=== PATIENT | female | born 1995 | race Caucasian/White ===

== ENCOUNTER 2017-09-16 07:29 | Emergency (ER) | payer OTHER ==
[2017-09-16 07:35] VITALS: BP 114/78; PULSE 90; TEMP 99; BMI 17.7
--- NOTE | 2017-09-16 08:48 | PDOC ---
History of Present Illness - General Chief Complaint: Cold Symptoms Stated Complaint: FLU-LIKE SYMPTOMS Time Seen by Provider: 09/16/17 08:21 History Source: Patient Exam Limitations: No Limitations - History of Present Illness Initial Comments: 09/16/17 08:45 Patient is here with complaints of flulike symptoms for the past 2 days. States has fever, headache, runny nose moist nonproductive cough and body aches. Timing/Duration: reports: just prior to arrival Severity: reports: moderate Past History - Travel Traveled outside of the country in the last 30 days: No Close contact w/someone who was outside of country & ill: No - Past Medical History Allergies/Adverse Reactions: Allergies Allergy/AdvReac Type Severity Reaction Status Date / Time nut - unspecified Allergy Rash Verified 09/16/17 07:35 shellfish derived Allergy Hives Verified 09/16/17 07:35 Home Medications: Ambulatory Orders Bupropion HCl [Wellbutrin -] 100 mg PO BID 08/03/14 [place] Carbonate [Eskalith -] 450 mg PO BID 08/03/14 Pindolol 10 mg PO ASDIR 08/03/14 Quetiapine Fumarate [Seroquel -] 200 mg PO HS 08/03/14 Oseltamivir Phosphate [Tamiflu -] 75 mg PO BID #10 capsule 09/16/17 Asthma: Yes COPD: No Psychiatric Problems: Yes (BIPOLAR) - Suicide/Smoking/Psychosocial Hx Smoking History: Never smoked Have you smoked in the past 12 months: No Hx Alcohol Use: No Drug/Substance Use Hx: No Substance Use Type: None Review of Systems - Review of Systems Able to Perform ROS?: Yes Is the patient limited [place] proficient: Yes Constitutional: Yes: Symptoms Reported, See HPI, Chills, Fever, Malaise HEENTM: Yes: Symptoms Reported, See HPI Respiratory: Yes: Symptoms reported, See HPI, Cough. No: Wheezing ABD/GI: Yes: Symptoms Reported Musculoskeletal: Yes: Symptoms Reported, See HPI Integumentary: Yes: Symptoms Reported, Pallor Neurological: Yes: Symptoms reported, See HPI, Headache All Other Systems: Reviewed and Negative *Physical Exam - Vital Signs Last Vital Signs Temp Pulse Resp BP Pulse Ox 99.0 F 90 20 114/78 100 09/16/17 07:32 09/16/17 07:32 09/16/17 07:32 09/16/17 07:32 09/16/17 07:32 - Physical Exam General Appearance: Yes: Nourished, Appropriately Dressed HEENT: positive: SAUL, Rhinorrhea, Sinus Tenderness. 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 NML intact, Fully Oriented, Alert, Normal Mood/ Affect, Normal Response, Motor Strength 01/02 Progress Note - Progress Note Progress Note: Upper respiratory infection, probable influenza we will treat with Tamiflu *DC/Admit/Observation/Transfer Diagnosis at time of Disposition: Influenzal bronchitis - Discharge Dispostion Disposition: HOME Condition at time of disposition: Stable Admit: No - Referrals - Patient Instructions Printed Discharge Instructions: DI for Viral Upper Respiratory Infection -- Adult Additional Instructions: Rest, drink lots of fluids: Teas, water, soups, Pedialyte Saltwater gargles Steamy showers/seem to face break up mucus Old-fashioned treatments help! Avoid contact with others until fevers and cough resolved as this is very contagious Lots of handwashing and good hygiene Continue [id number] medications for symptomatic relief Tylenol or Motrin for fever and pain Take all of Tamiflu as directed: 1 tab every 12 hours for 5 days Followup with private physician in one to 2 days as needed or if worsening Return to emergency department for worsened symptoms, fevers, dehydration Influenza takes between 5 and 7 days for resolution To not participate in any activity, work, or school until fevers and cough are gone for at least one day - Post Discharge Activity Forms/Work/School Notes: Back to Work
== END 2017-09-16 08:51 | disposition home or self-care (01) ==
LOC: JERFT 07:29 → JER 07:29 → JERFT 08:51
DX: J11.1 Influenza due to unidentified influenza virus with other respiratory manifestations (principal); J40 Bronchitis, not specified as acute or chronic
CPT/HCPCS: 99281-25

== ENCOUNTER 2018-01-13 02:37 | Emergency (ER) | payer OTHER ==
[2018-01-13] MEDS ORDERED: LIDOCAINE HCL 2% (50ML VIAL) SQ ONE (03:25)
[2018-01-13] MEDS ORDERED: BUPIVACAINE HCL/PF (5 MG/ML) 30 ML VIAL IJ ONE (03:26)
--- NOTE | 2018-01-13 03:27 | PDOC ---
History of Present Illness - General Chief Complaint: Toothache Stated Complaint: TOOTHACHE Time Seen by Provider: 01/13/18 03:21 History Source: Patient Exam Limitations: No Limitations - History of Present Illness Initial Comments: CHIEF COMPLAINT: 22 y/o female c/o left toothache x 4 days. HISTORY OF PRESENT ILLNESS: patient has been taking 200mg of motrin daily with no relief. Patient denies fever. She has no dentist REVIEW OF SYSTEMS: GENERAL/CONSTITUTIONAL: No fever/chills. HEAD, EYES, EARS, NOSE AND THROAT: +left lower toothache SKIN: No rash or easy bruising. NEUROLOGIC: No headache, vertigo, loss of consciousness, or loss of sensation. PHYSICAL EXAM: GENERAL: The patient is awake, alert, and fully oriented, in no acute distress. ENT: Left lower last molar impacted with surrounding gingival edema that is TTP. EXTREMITIES: Normal range of motion, no edema. NEUROLOGICAL: Normal speech, normal gait. CN II-XII grossly intact. Past History - Past Medical History Allergies/Adverse Reactions: Allergies Allergy/AdvReac Type Severity Reaction Status Date / Time nut - unspecified Allergy Rash Verified 01/13/18 03:30 shellfish derived Allergy Hives Verified 01/13/18 03:30 Home Medications: Ambulatory Orders Bupropion HCl [Wellbutrin -] 100 mg PO BID 08/03/14 [place] Carbonate [Eskalith -] 450 mg PO BID 08/03/14 Pindolol 10 mg PO ASDIR 08/03/14 Quetiapine Fumarate [Seroquel -] 200 mg PO HS 08/03/14 Oseltamivir Phosphate [Tamiflu -] 75 mg PO BID #10 capsule 09/16/17 Asthma: Yes COPD: No Psychiatric Problems: Yes (BIPOLAR) - Suicide/Smoking/Psychosocial Hx Smoking History: Never smoked Have you smoked in the past 12 months: No Hx Alcohol Use: No Drug/Substance Use Hx: No Substance Use Type: None Medical Decision Making - Medical Decision Making A/P: 22 y/o with impacted wisdom tooth. Will give an inferior alveolar block with bupivicaine and lidocaine. Will discharge to home with instructions to take 600mg of motrin every 6 hours with food for pain and f/u at the dental clinic tomorrow. The patient verbalizes understanding of all instructions, has no further questions and is awaiting discharge. *DC/Admit/Observation/Transfer Diagnosis at time of Disposition: Impacted tooth - Discharge Dispostion Disposition: HOME Condition at time of disposition: Good - Referrals Referrals: ON STAFF,NOT [Primary Care Provider] - - Patient Instructions Printed Discharge Instructions: DI for Impacted Tooth Additional Instructions: Discharge Instructions: -Take 600mg of motrin every 6 hours with food for pain/swelling -Call [facility] first thing in the morning for appointment: [address] [place] [phone] - Post Discharge Activity
[2018-01-13] MEDS ORDERED: LIDOCAINE HCL 2% (20ML MULTI-DOSE VIAL) NR ONE ×2 (03:33→03:57)
[2018-01-13] MEDS ORDERED: BUPIVACAINE HCL/PF 0.5% (5MG/ML) 10 ML VIAL ONE ×2 (03:33→03:57)
--- NOTE | 2018-01-13 03:34 | PDOC ---
*Physical Exam - Vital Signs Last Vital Signs Temp Pulse Resp BP Pulse Ox 98.5 F 85 18 124/75 100 01/13/18 03:20 01/13/18 03:20 01/13/18 03:20 01/13/18 03:20 01/13/18 03:20 Medical Decision Making - Medical Decision Making 01/13/18 03:33 agree with care from LONNY Ma *DC/Admit/Observation/Transfer Diagnosis at time of Disposition: Impacted tooth - Discharge Dispostion Disposition: HOME Condition at time of disposition: Good - Referrals Referrals: ON STAFF,NOT [Primary Care Provider] - - Patient Instructions Printed Discharge Instructions: DI for Impacted Tooth Additional Instructions: Discharge Instructions: -Take 600mg of motrin every 6 hours with food for pain/swelling -Call [facility] first thing in the morning for appointment: [address] [place] [address] [place] [phone] - Post Discharge Activity
[2018-01-13] MEDS ORDERED: IBUPROFEN 600 MG TABLET (FP) PO ONE ×2 (03:48→03:58)
[2018-01-13 03:50] VITALS: BP 124/75; PULSE 85; TEMP 98.5; BMI 18.8
== END 2018-01-13 04:03 | disposition home or self-care (01) ==
LOC: SUPCPDRO 02:37 → JER 02:37
PROC: 3E033NZ Introduction of Analgesics, Hypnotics, Sedatives into Peripheral Vein, Percutaneous Approach (ICD-10-PCS; principal; 2018-01-13)
DX: K01.1 Impacted teeth (principal); F31.9 Bipolar disorder, unspecified; J45.909 Unspecified asthma, uncomplicated
CPT/HCPCS: 99281-25

== ENCOUNTER 2018-03-19 20:07 | Emergency (ER) | payer OTHER ==
--- NOTE | 2018-03-19 20:50 | PDOC ---
Rapid Medical Evaluation Chief Complaint: Vaginal Sxs Time Seen by Provider: 03/19/18 20:48 Medical Evaluation: Allergies Allergy/AdvReac Type Severity Reaction Status Date / Time nut - unspecified Allergy Rash Verified 01/13/18 03:30 shellfish derived Allergy Hives Verified 01/13/18 03:30 03/19/18 20:49 I have performed a [id number] evaluation. The patient presents with a chief complaint: urinary burn, urgency/frequency/ hesitancy LMP: 03/09/2018 Pertinent physical exam findings: neg abd pain I have ordered the following:, ua, uc, upreg The patient will proceed to the ED for further evaluation. 03/19/18 22:07 Discharge Disposition - Referrals Referrals: Gabby Nunez MD [Primary Care Provider] - - Patient Instructions - Post Discharge Activity
[2018-03-19 20:52] VITALS: BP 129/80; PULSE 85; TEMP 98.6; BMI 16.1
--- NOTE | 2018-03-19 22:09 | PDOC ---
History of Present Illness - General Chief Complaint: Vaginal Sxs Stated Complaint: VAGINAL SXS Time Seen by Provider: 03/19/18 20:48 History Source: Patient Exam Limitations: No Limitations - History of Present Illness Travel History: No Initial Comments: 03/19/18 22:08 Best Contact: PCP: None Pmhx: Asthma/no history of intubation or recent admission Pshx: 0 Allergies: NKDA FH:N/A Social Hx: Cigarettes/ 0 Alcohol/ 0 Drugs/0 LMP: 03/09/2018 23-year-old female presents to the ER complaining of burning upon urination with urinary frequency/urgency/hesitancy since earlier this morning without fever, chills, nausea/vomiting, abdominal pains, flank pain. Patient states her symptoms are similar to her previous UTI symptoms. Patient denies any other complaints. Past History - Past Medical History Allergies/Adverse Reactions: Allergies Allergy/AdvReac Type Severity Reaction Status Date / Time nut - unspecified Allergy Rash Verified 01/13/18 03:30 shellfish derived Allergy Hives Verified 01/13/18 03:30 Home Medications: Ambulatory Orders Bupropion HCl [Wellbutrin -] 100 mg PO BID 08/03/14 [place] Carbonate [Eskalith -] 450 mg PO BID 08/03/14 Pindolol 10 mg PO ASDIR 08/03/14 Quetiapine Fumarate [Seroquel -] 200 mg PO HS 08/03/14 Oseltamivir Phosphate [Tamiflu -] 75 mg PO BID #10 capsule 09/16/17 metroNIDAZOLE 0.75% VAG. GEL [Metrogel 0.75% *Vaginal Gel* -] 1 applic VG HS #1 tube 03/19/18 Asthma: Yes Cardiac Disorders: No CVA: No COPD: No DVT: No Psychiatric Problems: Yes (BIPOLAR) - Suicide/Smoking/Psychosocial Hx Smoking History: Never smoked Have you smoked in the past 12 months: No Information on smoking cessation initiated: No Hx Alcohol Use: No Drug/Substance Use Hx: No Substance Use Type: None Review of Systems - Review of Systems Able to Perform ROS?: Yes Comments:: 03/19/18 22:10 CONSTITUTIONAL: Absent: fever, chills, diaphoresis, generalized weakness, malaise, loss of appetite RESPIRATORY: Absent: cough, shortness of breath, dyspnea with exertion, orthopnea, wheezing, stridor, hemoptysis GASTROINTESTINAL: Absent: abdominal pain, abdominal distension, nausea, vomiting, diarrhea, constipation, melena, hematochezia GENITOURINARY: Absent: dysuria, frequency, urgency, hesitancy, hematuria, flank pain, genital pain SKIN: Absent: rash, itching, pallor Is the patient limited Pakistani proficient: No *Physical Exam - Vital Signs Last Vital Signs Temp Pulse Resp BP Pulse Ox 98.6 F 85 20 129/80 100 03/19/18 20:49 03/19/18 20:49 03/19/18 20:49 03/19/18 20:49 03/19/18 20:49 - Physical Exam Comments: 03/19/18 22:11 GENERAL: Well developed, well nourished. Awake and alert. No acute distress. CARDIOVASCULAR: Regular rate and rhythm. No murmurs, rubs, or gallops. Distal pulses are 2+ and symmetric. PULMONARY: No evidence of respiratory distress. Lungs clear to auscultation bilaterally. No wheezing, rales or rhonchi. ABDOMINAL: Soft. Non-tender. Non-distended. No rebound or guarding. No organomegaly. Normoactive bowel sounds. SKIN: Warm and dry. Normal capillary refill. No rashes. No jaundice. Pelvic: External genitalia normal without lesions. Vaginal vault is clear without blood or discharge. +copious whitish/greyish discharge Cervix is long and closed. No cervical motion tenderness. Uterus is nontender and normal in size. Adnexa are nontender and without masses. +fishy discharge *DC/Admit/Observation/Transfer Diagnosis at time of Disposition: UTI (urinary tract infection) Qualifiers: Urinary tract infection type: acute cystitis Hematuria presence: without hematuria Qualified Code(s): N30.00 - Acute cystitis without hematuria Vaginitis Qualifiers: Chronicity: acute Qualified Code(s): N76.0 - Acute vaginitis - Discharge Dispostion Disposition: HOME Condition at time of disposition: Stable Decision to Admit order: No - Prescriptions Prescriptions: metroNIDAZOLE 0.75% VAG. GEL [Metrogel 0.75% *Vaginal Gel* -] 1 applic VG HS #1 tube - Referrals Referrals: Gabby Nunez MD [Primary Care Provider] - - Patient Instructions Printed Discharge Instructions: DI for Vaginal Yeast Infection, DI for Urinary Tract Infection (UTI) Additional Instructions: Increase fluids Patient to follow-up with the manufacturing project engineer listed on your discharge within 48 hours Your urine does not show a urinary tract infection but due to you persistent symptoms of urinary frequency/urgency/hesitancy and burning upon urination, I will treat you with Bactrim DS. Take until completion. You exam is consistent with a yeast infection and you'll be treated with MetroGel which is to be taken at bedtime Return back to the ER for any concerns - Post Discharge Activity
[2018-03-19 22:20] LABS: URINE APPEARANCE CLEAR; URINE BILIRUBIN NEGATIVE (<2.0 mg/dL); URINE COLOR AMBER; URINE GLUCOSE (UA) NEGATIVE (NEGATIVE); URINE KETONE NEGATIVE (NEGATIVE); URINE LEUK ESTERASE NEGATIVE (NEGATIVE); URINE NITRITE NEGATIVE (NEGATIVE)
[2018-03-19 22:21] LABS: URINE PROTEIN 1+ (NEGATIVE)
[2018-03-19 22:23] LABS: HCG,QUALITATIVE URINE NEGATIVE
[2018-03-19 22:34] LABS: EPI CELLS RARE /HPF (FEW); URINE BACTERIA RARE /hpf (NONE SEEN); URINE MUCUS MANY
== END 2018-03-19 23:02 | disposition home or self-care (01) ==
LOC: JERFT 20:07
DX: N76.0 Acute vaginitis (principal); N30.00 Acute cystitis without hematuria
CPT/HCPCS: 81003; 81015; 84703; 87086; 99281-25

== ENCOUNTER 2020-04-10 13:29 | Emergency (ER) | payer OTHER ==
[2020-04-10] MEDS ORDERED: ONDANSETRON 4 MG/2 ML VIAL IVPUSH ONE (13:34)
[2020-04-10] MEDS ORDERED: SODIUM CHLORIDE 1,000 ML IV STA (13:34)
--- NOTE | 2020-04-10 13:34 | PDOC ---
Rapid Medical Evaluation Time Seen by Provider: 04/10/20 13:33 Medical Evaluation: Allergies Allergy/AdvReac Type Severity Reaction Status Date / Time nut - unspecified Allergy Rash Verified 01/13/18 03:30 shellfish derived Allergy Hives Verified 01/13/18 03:30 04/10/20 13:33 I have performed a brief in-person evaluation of this patient. CC: sent by PMD to r/o appendicitis PE: RLQ tenderness. No rebound. Orders: labs, urine, CTAP, gc Patient will proceed to ED for further evaluation. Discharge Disposition - Diagnosis RLQ abdominal pain - Referrals - Patient Instructions - Post Discharge Activity
[2020-04-10 13:42] VITALS: BP 125/95; PULSE 68; TEMP 98.2; BMI 22.2
[2020-04-10 14:44] LABS: EPI CELLS >36 /uL (0-25.1); HYALINE CASTS 4 /uL (0-3.1); PH,URINE 5.5 (5.0-8.0); URINE APPEARANCE TURBID; URINE BILIRUBIN NEGATIVE (NEGATIVE); URINE COLOR YELLOW; URINE GLUCOSE (UA) NEGATIVE (NEGATIVE); URINE KETONE NEGATIVE (NEGATIVE); URINE LEUK ESTERASE 3+ (NEGATIVE); URINE NITRITE POSITIVE (NEGATIVE); URINE PROTEIN 3+ (NEGATIVE); URINE RBC 204 /uL (0-23.9); URINE UROBILINOGEN 0.2 mg/dL (0.2-1.0); URINE WBC 7878 /uL (0-25.8)
[2020-04-10 14:46] LABS: BASO % 0.7 % (0-2.0); EOS % 0.5 % (0-4.5); HEMATOCRIT 40.7 % (32.4-45.2); HEMOGLOBIN 13.3 GM/dL (10.7-15.3); LYMPH % 8.9 % (8-40); MCH 29.2 pg (25.7-33.7); MCHC 32.7 g/dl (32.0-36.0); MEAN CELL VOLUME 89.5 fl (80-96); MEAN PLT VOLUME 7.6 fl (7.5-11.1); MONO % 7.4 % (3.8-10.2); NEUT % 82.5 % (42.8-82.8); PLATELET COUNT 722 K/MM3 (134-434); RBC 4.54 M/mm3 (3.60-5.2); RDW 15.3 % (11.6-15.6); WHITE BLOOD COUNT 16.8 K/mm3 (4.0-10.0)
[2020-04-10 15:04] LABS: HCG,QUALITATIVE URINE Negative
[2020-04-10 15:05] LABS: ALBUMIN 3.8 g/dl (3.4-5.0); BILIRUBIN,TOTAL 0.3 mg/dL (0.2-1); BLOOD UREA NITROGEN 12.5 mg/dL (7-18); CALCIUM 9.6 mg/dL (8.5-10.1); CREATININE 0.9 mg/dL (0.55-1.3); POTASSIUM 4.1 mmol/L (3.5-5.1)
[2020-04-10] MEDS ORDERED: CEFTRIAXONE 1,000 MG in DEXTROSE 5%-WATER - 50 ML IVPB ONE (15:10)
[2020-04-10] MEDS ORDERED: CEFTRIAXONE 1 GM/50 ML BAG ONE (18:09)
--- NOTE | 2020-04-10 19:07 | PDOC ---
History of Present Illness - General Chief Complaint: Pain, Acute Stated Complaint: SENT BY DOC Time Seen by Provider: 04/10/20 13:33 - History of Present Illness Initial Comments: 04/10/20 19:04 25-year-old female presents for evaluation of right-sided abdominal pain x3 days and mild dysuria no systemic symptoms Past History - Medical History Allergies/Adverse Reactions: Allergies Allergy/AdvReac Type Severity Reaction Status Date / Time nut - unspecified Allergy Mild Rash Verified 04/10/20 18:32 shellfish derived Allergy Mild Hives Verified 04/10/20 18:32 Home Medications: Ambulatory Orders Bupropion HCl [Wellbutrin -] 100 mg PO BID 08/03/[address] [place] Carbonate [Eskalith -] 450 mg PO BID 08/03/14 Pindolol 10 mg PO ASDIR 08/03/14 Quetiapine Fumarate [Seroquel -] 200 mg PO HS 08/03/14 Oseltamivir Phosphate [Tamiflu -] 75 mg PO BID #10 capsule 09/16/17 Sulfamethoxazole/Trimethoprim [Bactrim Ds -] 1 tab PO BID #14 tablet 03/19/18 metroNIDAZOLE 0.75% VAG. GEL [Metrogel 0.75% *Vaginal Gel* -] 1 applic VG HS #1 tube 03/19/18 Sulfamethoxazole/Trimethoprim [Bactrim Ds -] 1 tab PO BID #14 tablet 04/10/20 Asthma: Yes Cardiac Disorders: No CVA: No COPD: No DVT: No Psychiatric Problems: Yes (BIPOLAR) - Reproductive History Is Patient Now?: No - Immunization History Immunization Up to Date: No - Psycho-Social/Smoking History Smoking History: Never smoked Have you smoked in the past 12 months: No Information on smoking cessation initiated: No - Substance Abuse Hx (Audit-C & DAST Scrn) How often the patient has a drink containing alcohol: Never Score: In Men: 4 or > Positive; In Women: 3 or > Positive: 0 Screen Result (Pos requires Nsg. Audit-10AR): Negative In the last yr the pt used illegal drug/Rx for NonMed reason: No Score: Yes response is considered Positive: 0 Screen Result (Positive result requires Nsg. DAST-10): Negative Review of Systems - Review of Systems ABD/GI: Yes: See HPI : Yes: Dysuria *Physical Exam - Vital Signs Last Vital Signs Temp Pulse Resp BP Pulse Ox 98.2 F 68 18 125/95 98 04/10/20 13:34 04/10/20 13:34 04/10/20 13:34 04/10/20 13:34 04/10/20 13:34 - Physical Exam 04/10/20 19:05 GENERAL: The patient is awake, alert, and fully oriented, in no acute distress. HEAD: Normal with no signs of trauma. EYES: sclera anicteric, conjunctiva clear. ENT: Ears normal tympanic membranes normal oropharynx clear uvula midline NECK: Normal range of motion LUNGS: Breath sounds equal, clear to auscultation bilaterally. No wheezes, and no crackles. HEART: S1 and S2 without murmur, rub or gallop. ABDOMEN: Soft, Right lower quadrant tenderness without rebound or guarding, normoactive bowel sounds. No guarding, no rebound. No masses. EXTREMITIES: Normal range of motion, no edema. No clubbing or cyanosis. No cords, erythema, or tenderness. NEUROLOGICAL: Cranial nerves II through XII grossly intact. PSYCH: Normal mood, normal affect. SKIN: Warm, Dry, normal turgor, no rashes or lesions noted. ED Treatment Course - LABORATORY CBC & Chemistry Diagram: 04/10/20 14:08 04/10/20 14:08 - ADDITIONAL ORDERS Additional order review: Laboratory Results 04/10/20 04/10/20 14:08 14:08 Sodium 137 Potassium 4.1 Chloride 104 Carbon Dioxide 27 Anion Gap 6 L BUN 12.5 Creatinine 0.9 Est GFR (CKD-EPI)AfAm 103.72 Est GFR (CKD-EPI)NonAf 89.49 Random Glucose 86 Calcium 9.6 Total Bilirubin 0.3 AST 13 L ALT 25 Alkaline Phosphatase 81 Total Protein 8.0 Albumin 3.8 Lipase 84 Urine Color Yellow Urine Appearance Turbid Urine pH 5.5 Ur Specific [place] 1.019 Urine Protein 3+ H Urine Glucose (UA) Negative Urine Ketones Negative Urine Blood 3+ H Urine Nitrite Positive H Urine Bilirubin Negative Urine Urobilinogen 0.2 Ur Leukocyte Esterase 3+ H Urine WBC (Auto) 7878 Urine RBC (Auto) 204 Urine Casts (Auto) 4 U Epithel Cells (Auto) >36 Urine Bacteria (Auto) >10,000 Urine HCG, Qual Negative 04/10/20 14:08 RBC 4.54 MCV 89.5 MCHC 32.7 RDW 15.3 MPV 7.6 Neutrophils % 82.5 Lymphocytes % 8.9 Monocytes % 7.4 Eosinophils % 0.5 Basophils % 0.7 - Medications Given in the ED: ED Medications Discontinued Medications Generic Name Dose Route Start Last Admin Trade Name David PRN Reason Stop Dose Admin Sodium Chloride 1,000 mls @ 1,000 mls/hr 04/10/20 13:34 04/10/20 14:35 Normal Saline - IV 04/10/20 14:33 1,000 mls/hr ASDIR STA Administration Ceftriaxone Sodium 1,000 mg/ 50 mls @ 100 mls/hr 04/10/20 15:10 04/10/20 18:15 Dextrose IVPB 04/10/20 15:39 100 mls/hr ONCE ONE Administration Ondansetron HCl 4 mg 04/10/20 13:34 04/10/20 15:38 Zofran Injection IVPUSH 04/10/20 13:35 4 mg ONCE ONE Administration Medical Decision Making - Medical Decision Making 04/10/20 19:05 Rocephin given for UTI in the emergency room Bactrim at home follow-up with primary care physician I have reviewed the pathophysiology with the patient. They are in agreement with the treatment plan all questions were answered to their satisfaction. Understanding for follow-up without fail was also conveyed to the patient. Again they are in agreement. Discharge - Discharge Information Problems reviewed: Yes Clinical Impression/Diagnosis: RLQ abdominal pain, UTI (urinary tract infection) Condition: Stable Disposition: HOME - Admission No - Follow up/Referral Referrals: Gabby Nunez MD [Primary Care Provider] - - Patient Discharge Instructions Additional Instructions: Please take the antibiotic as directed and return to the emergency room should symptoms worsen. Without fail follow-up with your primary care physician in 1 to 2 days for further evaluation and treatment options. You must finish all the antibiotics as directed. - Post Discharge Activity
== END 2020-04-10 19:19 | disposition home or self-care (01) ==
LOC: JER 13:29
PROC: 3E03329 Introduction of Other Anti-infective into Peripheral Vein, Percutaneous Approach (ICD-10-PCS; principal; 2020-04-10)
PROC: 3E033GC Introduction of Other Therapeutic Substance into Peripheral Vein, Percutaneous Approach (ICD-10-PCS; 2020-04-10)
PROC: 3E0337Z Introduction of Electrolytic and Water Balance Substance into Peripheral Vein, Percutaneous Approach (ICD-10-PCS; 2020-04-10)
DX: R10.31 Right lower quadrant pain (principal); N39.0 Urinary tract infection, site not specified
CPT/HCPCS: 36415; 74177-TC; 80053; 81003; 83690; 84703; 85025; 87086; 87186; 99285-25; Q9967

== ENCOUNTER 2020-07-24 12:02 | Emergency (ER) | payer OTHER ==
[2020-07-24 12:17] VITALS: BP 141/94; PULSE 93; TEMP 98.6; BMI 20.9
[2020-07-24 14:33] LABS: THROAT:GRP A STREP ANTIGEN Negative (Negative)
== END 2020-07-24 14:48 | disposition home or self-care (01) ==
LOC: JER 12:02
DX: J06.9 Acute upper respiratory infection, unspecified (principal); Z11.59 Encounter for screening for other viral diseases
CPT/HCPCS: 87070; 87804; 87880; 99284-25; C9803; U0003

== ENCOUNTER 2022-08-01 08:22 | Inpatient (IN) | payer OTHER ==
[2022-08-01] MEDS ORDERED: DINOPROSTONE 10 MG VAGINAL SUPPOSITORY VG ONE (09:25)
[2022-08-01] MEDS: ELECTROLYTE-148 SOLN 1,000 ML IV SCH ×2 (10:30→17:00)
[2022-08-01 10:43] VITALS: BMI 32.8
[2022-08-01] MEDS ORDERED: PROMETHAZINE HCL 25 MG/1 ML VIAL IVPB ONE (22:16)
[2022-08-01] MEDS ORDERED: BUTORPHANOL TARTRATE 1 MG/ML VIAL IVPB ONE (22:17)
[2022-08-01] MEDS ORDERED: OXYTOCIN 30 UNITS in 0.9% NS 30 UNIT/500 ML INFUS.BAG IVPB SCH (22:30)
[2022-08-01] MEDS ORDERED: OXYTOCIN 30 UNITS in 0.9% NS 30 UNIT/500 ML INFUS.BAG IVPB ONE (23:23)
[2022-08-01] MEDS ORDERED: BUTORPHANOL TARTRATE 1 MG/ML VIAL ONE (23:38)
[2022-08-01] MEDS ORDERED: PROMETHAZINE HCL 25 MG/1 ML VIAL ONE (23:38)
[2022-08-02] MEDS ORDERED: BUTORPHANOL TARTRATE 1 MG/ML VIAL ONE (02:50)
[2022-08-02] MEDS ORDERED: BUPIVACAINE HCL/PF 0.25% (2.5MG/ML) 10 ML VIAL ONE (04:04)
[2022-08-02] MEDS ORDERED: FENTANYL/BUPIVACAINE/NS/PF - PCEA - 50 ML DISP.SYRIN EP ONE (04:23)
[2022-08-02] MEDS: FENTANYL/BUPIVACAINE/NS/PF - PCEA - 50 ML DISP.SYRIN EP SCH (04:25)
[2022-08-02] MEDS ORDERED: NALOXONE HCL 0.4 MG/ML VIAL IVPUSH PRN (04:36)
[2022-08-02] MEDS ORDERED: OXYTOCIN 20 UNITS in 0.9% NS 20 UNIT/1,000 ML INFUS.BAG IV ONE (04:47)
[2022-08-02] MEDS ORDERED: LIDOCAINE HCL 1% PRESERVATIVE FREE - 30ML VIAL ONE (04:47)
[2022-08-02] MEDS: ELECTROLYTE-148 SOLN 1,000 ML IV SCH ×2 (05:54)
[2022-08-02] MEDS ORDERED: METHYLERGONOVINE MALEATE 0.2 MG/1 ML AMP IM PRN (07:46)
[2022-08-02] MEDS ORDERED: WITCH HAZEL 50% (TUCKS) 40 PAD/JAR PAD TP PRN (07:46)
[2022-08-02] MEDS ORDERED: BENZOCAINE 20% 57 GM BOTTLE TP PRN (07:46)
[2022-08-02] MEDS ORDERED: BENZOCAINE 28 GM HEMORRHOIDAL OINTMENT TP PRN (07:46)
[2022-08-02] MEDS ORDERED: OXYTOCIN 20 UNITS in 0.9% NS 20 UNIT/1,000 ML INFUS.BAG IV SCH (08:00)
[2022-08-02] MEDS: PRENATAL VITAMINS W/ FOLIC ACID TABLET (FP) PO SCH (13:36)
[2022-08-02] MEDS: IBUPROFEN 600 MG TABLET (FP) PO PRN (13:36)
[2022-08-02] MEDS: ACETAMINOPHEN 325 MG TABLET (FP) PO PRN ×2 (17:01→23:55)
[2022-08-03] MEDS: IBUPROFEN 600 MG TABLET (FP) PO PRN ×4 (08:32→23:21)
[2022-08-03] MEDS ORDERED: FLU VACC QS2022-23(6MOS UP)/PF 60 MCG/0.5 ML SYRINGE IM ONE (10:00)
[2022-08-03] MEDS ORDERED: DIPHTH,PERTUSS(ACELL),TET 0.5 ML DISP.SYRIN IM ONE (10:00)
[2022-08-03 10:35] LABS: MCH 28.9 pg (25.7-33.7); MCHC 32.2 g/dl (32.0-36.0); MEAN CELL VOLUME 89.6 fl (80-96); MEAN PLT VOLUME 8.4 fl (7.5-11.1); PLATELET COUNT 434 10^3/uL (134-434)
[2022-08-03] MEDS: PRENATAL VITAMINS W/ FOLIC ACID TABLET (FP) PO SCH (11:08)
[2022-08-03 11:13] LABS: ANISOCYTOSIS 1+; MACROCYTOSIS 0
[2022-08-03 21:12] VITALS: RESP 18
[2022-08-03] MEDS ORDERED: SENNOSIDES/DOCUSATE COMBO (SENNA PLUS) TABLET (UD) PO PRN (22:00)
[2022-08-04] MEDS: FENTANYL/BUPIVACAINE/NS/PF - PCEA - 50 ML DISP.SYRIN EP SCH (01:02)
[2022-08-04] MEDS: PRENATAL VITAMINS W/ FOLIC ACID TABLET (FP) PO SCH (09:47)
[2022-08-04] MEDS: IBUPROFEN 600 MG TABLET (FP) PO PRN (11:40)
[2022-08-04 13:38] VITALS: BP 145/91; PULSE 103; TEMP 98.9
== END 2022-08-04 16:00 | disposition home or self-care (01) | DRG 560 ==
LOC: JLDR 08:22 → J3W 08-02 10:30
PROVIDERS: ADMIT Obstetrics & Gynecology; ATTEND Obstetrics & Gynecology
PROC: 3E0P7VZ Introduction of Hormone into Female Reproductive, Via Natural or Artificial Opening (ICD-10-PCS; 2022-08-01)
PROC: 3E033VJ Introduction of Other Hormone into Peripheral Vein, Percutaneous Approach (ICD-10-PCS; 2022-08-01)
PROC: 10E0XZZ Delivery of Products of Conception, External Approach (ICD-10-PCS; principal; 2022-08-02)
PROC: 0W8NXZZ Division of Female Perineum, External Approach (ICD-10-PCS; 2022-08-02)
PROC: 0KQM0ZZ Repair Perineum Muscle, Open Approach (ICD-10-PCS; 2022-08-02)
DX: O14.04 Mild to moderate pre-eclampsia, complicating childbirth (principal); O70.1 Second degree perineal laceration during delivery; O69.81X0 Labor and delivery complicated by cord around neck, without compression, not applicable or unspecified; O99.214 Obesity complicating childbirth; E66.9 Obesity, unspecified; Z3A.37 37 weeks gestation of pregnancy; Z37.0 Single live birth
CPT/HCPCS: 36415; 59409; 85025; 90715; G0008; Q2036